=== PATIENT | male | born 1980 | race African-American/Black ===

== ENCOUNTER 2017-11-22 16:59 | Emergency (ER) | payer OTHER ==
[~2017-11-22] VITALS: Ht 182.9 cm; Wt 72.7 kg
[~2017-11-22 16:59] MED LIST: MOTRIN800 MG PO; NAPROXEN500 MG PO
[2017-11-22 17:23] VITALS: BP 120/86
[2017-11-22] MEDS ORDERED: MOTRIN600 MG PO (18:02)
[2017-11-22] MEDS ORDERED: FLEXERIL10 MG PO (18:02)
== END 2017-11-22 18:16 | disposition home or self-care (01) ==
LOC: EME 16:59
DX: S16.1XXA Strain of muscle, fascia and tendon at neck level, initial encounter (principal); M25.512 Pain in left shoulder; X58.XXXA Exposure to other specified factors, initial encounter; F17.200 Nicotine dependence, unspecified, uncomplicated
CPT/HCPCS: 99281; 99283